=== PATIENT | female | born 1980 | race Caucasian/White ===

== ENCOUNTER 2016-08-17 01:49 | Emergency (ER) | payer SELFPAY ==
[~2016-08-17] VITALS: Ht 165.1 cm; Wt 54.0 kg
[2016-08-17 01:54] VITALS: BP 130/86
== END 2016-08-17 03:25 | disposition home or self-care (01) ==
LOC: ER 01:57
DX: F41.0 Panic disorder [episodic paroxysmal anxiety] (principal); R20.2 Paresthesia of skin
CPT/HCPCS: 99284